=== PATIENT | female | born 1975 | race African-American/Black ===

== ENCOUNTER 2017-06-21 03:02 | Emergency (ER) | payer MEDICAID ==
[~2017-06-21] VITALS: Ht 162.6 cm; Wt 47.0 kg
[2017-06-21 03:05] VITALS: BP 112/68
== END 2017-06-21 05:00 | disposition left against medical advice (07) ==
LOC: ER 03:36
DX: M25.531 Pain in right wrist (principal); Z53.21 Procedure and treatment not carried out due to patient leaving prior to being seen by health care provider

== ENCOUNTER 2017-06-21 14:50 | Emergency (ER) | payer MEDICAID ==
[~2017-06-21] VITALS: Ht 162.6 cm; Wt 47.0 kg
[2017-06-21] MEDS ORDERED: IBUPROFEN 600MG TABLET PO ONE (18:15)
[2017-06-21 21:00] VITALS: BP 136/70
== END 2017-06-21 21:00 | disposition home or self-care (01) ==
LOC: ER 15:12
DX: S52.591A Other fractures of lower end of right radius, initial encounter for closed fracture (principal); F12.10 Cannabis abuse, uncomplicated; W19.XXXA Unspecified fall, initial encounter; Y93.9 Activity, unspecified; Y92.89 Other specified places as the place of occurrence of the external cause; Y99.8 Other external cause status
CPT/HCPCS: 29125; 73110; 81025; 99284; A4565

== ENCOUNTER 2019-03-23 23:26 | Emergency (ER) | payer MEDICAID ==
[~2019-03-23] VITALS: Ht 152.4 cm; Wt 55.0 kg
[2019-03-24] MEDS ORDERED: KETOROLAC 60MG/2ML VIAL IM ONE (01:30)
[2019-03-24 03:02] VITALS: BP 97/61
== END 2019-03-24 03:26 | disposition home or self-care (01) ==
LOC: ER 23:26
DX: R07.89 Other chest pain (principal); F17.200 Nicotine dependence, unspecified, uncomplicated; F12.10 Cannabis abuse, uncomplicated; V49.9XXA Car occupant (driver) (passenger) injured in unspecified traffic accident, initial encounter; Y93.89 Activity, other specified; Y92.89 Other specified places as the place of occurrence of the external cause; Y99.8 Other external cause status
CPT/HCPCS: 71045; 71120; 93005; 96372; 99283; J1885